=== PATIENT | male | born 1980 | race Caucasian/White ===

== ENCOUNTER 2021-08-11 10:54 | Emergency (ER) | payer SELFPAY ==
[2021-08-11] MEDS ORDERED: Ondansetron ODT 4 MG TAB ONE (11:40)
[2021-08-11 22:43] LABS: SARS-CoV-2 PCR by NAA Not Detected (NotDetected)
== END 2021-08-11 12:20 | disposition home or self-care (01) ==
LOC: MADERS 10:54
DX: J10.1 Influenza due to other identified influenza virus with other respiratory manifestations (principal); F17.220 Nicotine dependence, chewing tobacco, uncomplicated; Z20.822 Contact with and (suspected) exposure to COVID-19
CPT/HCPCS: 87804; 99283; Q0162; U0003; U0005